=== PATIENT | male | born 1985 | race African-American/Black ===

== ENCOUNTER 2017-06-04 18:54 | Emergency (ER) | payer OTHER ==
--- NOTE | 2017-06-04 19:26 | RAD ---
CHEST ONE VIEW 06/04/17 HISTORY: Chest pain. FINDINGS: No comparison. The cardiac silhouette is magnified by projection. Pulmonary vasculature is unremarkable. Mediastinum is midline. There is no lobar consolidation or evidence of pneumothorax. athletic monitor leads overl ie the chest. IMPRESSION: No active cardiopulmonary abnormalities are demonstrated. POS: [facility]
[2017-06-04 19:27] LABS: #Basophils 0.1 thou/uL (0.0-0.2); #Eosinphils 0.3 thou/uL (0.0-0.7); #Lymphocytes 3.7 thou/uL (1.20-3.40); #Monocytes 0.8 thou/uL (0.11-0.59); #Neutrophils 3.2 thou/uL (1.40-6.50); %Basophils 1.4 % (0.0-1.0); %Eosinophils 4.1 % (0.0-10.0); %Lymphocytes 45.7 % (21.0-51.0); %Monocytes 9.5 % (0.0-10.0); %Neutrophils 39.4 % (42.0-75.0); Hemoglobin 13.6 g/dL (14.0-18.0); Mean Corpuscular HGB CONC 33.7 g/dL (32.0-36.0); Mean Corpuscular Hemoglobin 30.8 pg (27.0-31.0); Mean Corpuscular Volume 91.2 fl (80.0-94.0); Mean Platelet Volume 7.2 fL (7.4-10.4); Platelet Count 337 thou/uL (130-400); RBC Distribution Width 12.7 % (11.5-14.5); Red Blood Cell (RBC) Count 4.42 mill/uL (4.70-6.10); White Blood Cell (WBC) Count 8.1 thou/uL (4.8-10.8)
[2017-06-04 19:49] LABS: ALT (SGPT) 22 U/L (8-55); AST (SGOT) 18 U/L (5-34); Albumin 4.3 g/dL (3.5-5.0); Alkaline Phosphatase 84 U/L (40-150); Anion Gap 13 mmol/L (10-20); BUN (Urea Nitrogen) 6 mg/dL (8.9-20.6); Bilirubin, Total 0.2 mg/dL (0.2-1.2); CK (CPK) 625 U/L (30-200); Calc. Creatinine Clearance 0 mL/min (70-130); Calcium 9.3 mg/dL (7.8-10.44); Carbon Dioxide 28 mmol/L (22-29); Chloride 101 mmol/L (98-107); Estimated GFR-MDRD Greater than 90; Globulin 3.7 g/dL (2.4-3.5); Glucose 84 mg/dL (70-105); Potassium 3.6 mmol/L (3.5-5.1); Sodium 138 mmol/L (136-145)
[2017-06-04 19:52] LABS: CKMB 1.2 ng/mL (0-6.6); Troponin I Less than 0.010 ng/mL (< 0.028)
[2017-06-04 19:53] LABS: Bilirubin Negative (Negative); Blood, Urine Negative (Negative); Clarity CLEAR (Clear); Glucose, Urine (Dipstick) Negative (Negative); Leukocyte Negative (Negative); Nitrite Negative (Negative); Protein, Urine (Dipstick) Negative (Neg-Trace); Specific Gravity, Urine 1.006 (1.002-1.036); Urobilinogen 0.2 mg/dL (0.2-1.0); pH, Urine 6.5 (5.0-9.0)
[2017-06-04 20:04] LABS: Amphetamine Not Detected (NotDetected); Barbiturates Screen Not Detected (NotDetected); Benzodiazepine Screen Not Detected (NotDetected); Cocaine Metabolite Screen Not Detected (NotDetected); Medtox Control Line Valid? VALID (VALID); Medtox Reader # READER 4; Methadone Not Detected (NotDetected); Methamphetamine Not Detected (NotDetected); Opiate Screen Not Detected (NotDetected); Oxycodone Screen Not Detected (NotDetected); Phencyclidine (PCP) Not Detected (NotDetected); THC/Cannabinoid Screen Not Detected (NotDetected); Tricyclic Screen Not Detected (NotDetected)
[2017-06-04] MEDS ORDERED: Nitroglycerin 2% Ointment 1 INCH/1 GM Packet ONE (22:32)
[2017-06-04] MEDS ORDERED: Adacel (T-DAP) 0.5 ML VIAL ONE (22:37)
--- NOTE | 2017-06-06 13:26 | EKG ---
Test Reason : CHEST PAIN Blood Pressure : / mmHG Vent. Rate : 070 BPM Atrial Rate : 070 BPM P-R Int : 178 ms QRS Dur : 108 ms QT Int : 388 ms P-R-T Axes : 048 -26 -12 degrees QTc Int : 419 ms Normal sinus rhythm with sinus arrhythmia T wave abnormality, consider anterolateral ischemia Abnormal ECG Confirmed by FERNANDO CORBETT, KAYA ([id number]), production editor MEY PATTON ([id number]) on 06/06/2017 1:25:53 PM Referred By: Confirmed By:KAYA KING MD
--- NOTE | 2017-06-06 13:26 | EKG ---
Test Reason : CHEST PAIN Blood Pressure : / mmHG Vent. Rate : 073 BPM Atrial Rate : 073 BPM P-R Int : 180 ms QRS Dur : 112 ms QT Int : 378 ms P-R-T Axes : 045 -27 010 degrees QTc Int : 416 ms Normal sinus rhythm Minimal voltage criteria for LVH, may be normal variant Nonspecific T wave abnormality Abnormal ECG Confirmed by FERNANDO CORBETT, KAYA ([id number]), telegraph editor MEY PATTON ([id number]) on 06/06/2017 1:25:54 PM Referred By: Confirmed By:KAYA KING MD
== END 2017-06-04 23:59 | disposition short-term general hospital (02) ==
LOC: ERS 18:54
DX: R07.9 Chest pain, unspecified (principal); I25.2 Old myocardial infarction; I10 Essential (primary) hypertension; F41.9 Anxiety disorder, unspecified; F31.9 Bipolar disorder, unspecified; F20.9 Schizophrenia, unspecified
CPT/HCPCS: 36415; 71045; 80053; 80306; 81003; 82553; 84484; 85025; 90471; 90715; 93005